=== PATIENT | female | born 1990 | race Caucasian/White ===

== ENCOUNTER 2016-08-16 19:34 | Emergency (ER) | payer MEDICAID, OTHER ==
[~2016-08-16] VITALS: Ht 162.6 cm; Wt 57.7 kg
[~2016-08-16 19:34] MED LIST: CEPH500C3 PO; HYDR-3533 PO; IBUP800T23 PO
[2016-08-16 19:55] VITALS: BP 123/82; PULSE 85; RESP 18; TEMP 98.5; O2SAT 99
--- NOTE | 2016-08-16 20:10 | PD ---
HPI Chief Complaint: palpitations Time Seen by Provider: 19:57 Travel History International Travel<30 days: No Contact w/Intl Traveler<30days: No Traveled to known affect area: No History of Present Illness HPI This 26-year-old female says she was sitting at home. She had an onset of a fast heartbeat. It only lasts for a few seconds after this fast heartbeat she got short of breath and dizzy and lightheaded. She is feeling better now. She is on no medications. She has no history of heart disease. She does drink a fair amount of caffeine. She smokes cigarettes and marijuana PFSH Past Medical History Autoimmune Disease: No Blood Disorders: No Cardiovascular Problems: No Gastrointestinal Disorders: No Genitourinary: No Musculoskeletal: No Neurologic: No Psychiatric: No Reproductive: Yes (GENITAL HERPES) Respiratory: No Past Surgical History Section: Yes Other Surgery: No Social History Alcohol Use: No Tobacco Use: Yes (1PPD) Substance Use: No Allergies-Medications (Allergen,Severity, Reaction): Coded Allergies: No Known Allergies (Verified , 12/05/14) Reported Meds & Prescriptions Reported Meds & Active Scripts Active Lortab 5 mg/325 mg (Hydrocodone/Acetaminophen 5 mg/325 mg) 1 Tab 1 Tab PO Q6H PRN Ibuprofen 800 Mg Tab 800 Mg PO Q8HR PRN Keflex (Cephalexin Monohydrate) 500 Mg Cap 500 Mg PO QID 5 Days Review of Systems General / Constitutional: No: Fever, Chills Eyes: No: Diploplia, Blurred Vision HENT: Positive: Lightheadedness, No: Headaches Cardiovascular: Positive: Palpitations, No: Chest Pain or Discomfort Respiratory: Positive: Shortness of Breath Gastrointestinal: Positive: Nausea Genitourinary: No: Urgency, Frequency Musculoskeletal: No: Myalgias, Arthralgias Neurologic: Positive: Dizziness, No: Syncope Hematologic/Lymphatic: No: Easy Bruising Physical Exam Narrative GENERAL: Well-developed female SKIN: Warm and dry. HEAD: Atraumatic. Normocephalic. EYES: Pupils equal and round. No scleral icterus. No injection or drainage. ENT: No nasal bleeding or discharge. Mucous membranes pink and moist. NECK: Trachea midline. No JVD. CARDIOVASCULAR: Regular rate and rhythm. No murmur appreciated. RESPIRATORY: No accessory muscle use. Clear to auscultation. Breath sounds equal bilaterally. GASTROINTESTINAL: Abdomen soft, non-tender, nondistended. Hepatic and splenic margins not palpable. MUSCULOSKELETAL: No obvious deformities. No clubbing. No cyanosis. No edema. NEUROLOGICAL: Awake and alert. No obvious cranial nerve deficits. Motor grossly within normal limits. Normal speech. PSYCHIATRIC: Appropriate mood and affect; insight and judgment normal. MDM Medical Decision Making Medical Screen Exam Complete: Yes Emergency Medical Condition: Yes Medical Record Reviewed: Yes Differential Diagnosis Differential includes SVT, anxiety, Narrative Course Patient is stable at this time. She is not tachycardic. A complete workup is warranted her symptoms are most consistent with anxiety triggered by possible dysrhythmia. I have recommended to her that she avoid caffeine and nicotine Diagnosis Primary Impression: Anxiety Disposition: DISCHARGE HOME Condition: Stable Martin Koenig MD Aug 16, 2016 20:10
== END 2016-08-16 20:42 | disposition home or self-care (01) ==
LOC: PHED 19:34
DX: F41.9 Anxiety disorder, unspecified (principal); F17.210 Nicotine dependence, cigarettes, uncomplicated; F12.90 Cannabis use, unspecified, uncomplicated
CPT/HCPCS: 99284